=== PATIENT | female | born 1985 | race Caucasian/White ===

== ENCOUNTER 2017-09-04 03:41 | Inpatient (IN) | payer OTHER ==
[2017-09-04] VITALS (20 sets, daily range): BP systolic 84–120; BP diastolic 48–80
[~2017-09-04] VITALS: Ht 160 cm; Wt 96.6 kg
[~2017-09-04 03:41] MED LIST: CLARITIN,ALAVAR10 MG PO; HYDROCODON-ACE1 EAC7 PO; IBUPROFEN800 MG PO; NEXIUM40 MG PO; PHILLIPS' LAXA100 MG PO; PRENATAL VITAM1 EAC1 PO
[2017-09-04] MEDS ORDERED: ASPIR 8181 M1 PO (05:03)
[2017-09-04] MEDS ORDERED: CLARITIN10 M3 PO (05:04)
[2017-09-04] MEDS ORDERED: FIORICET 50-301 EAC1 PO (05:04)
[2017-09-04] MEDS ORDERED: TYLENOL EXTRA500 MG PO (05:05)
[2017-09-04] MEDS ORDERED: FLONASE SENSIM9.9 ML BOTH NARES (05:05)
[2017-09-04] MEDS ORDERED: BENADRYL50 MG PO (05:06)
[2017-09-04 06:22] LABS: BASOPHIL (%) 0.4 % (0-1); BASOPHIL COUNT 0.1 K/uL (0-0.1); EOSINOPHIL (%) 0.6 % (0-5); EOSINOPHIL COUNT 0.1 K/uL (0-0.3); HEMATOCRIT 36.3 % (36.0-46.0); HEMOGLOBIN 11.5 G/DL (11.9-15.5); IMMATURE GRANULOCYTE (%) 0.6 % (0.0-0.7); LYMPHOCYTE (%) 21.4 % (15-42); LYMPHOCYTE COUNT 3.1 K/uL (1.0-2.8); MCH 25.9 PG (29.0-34.0); MCHC 31.7 G/DL (30.0-36.0); MCV 81.8 FL (83-99); MONOCYTE (%) 6.7 % (3-12); NEUTROPHIL (%) 70.3 % (45-76); NEUTROPHIL COUNT 10.2 K/uL (1.8-6.4); PLATELET COUNT 165 K/uL (156-360); RBC DIS.WIDTH-CV 13.8 % (11.8-14.6); RBC DIS.WIDTH-SD 40.4 % (39-53); RED BLOOD COUNT 4.44 M/uL (3.80-5.20); WHITE BLOOD COUNT 14.6 K/uL (4.1-10.2)
[2017-09-04 06:34] LABS: COCAINE NEGATIVE (150 ng/mL); METHAMPHETAMINE NEGATIVE (500 ng/mL); OPIATES (MORPHINE) NEGATIVE (100 ng/mL); PHENCYCLIDINE NEGATIVE (25 ng/mL); THC CANNABINOIDS NEGATIVE (50 ng/mL)
[2017-09-04 06:35] LABS: AMPHETAMINE NEGATIVE (500 ng/mL); BARBITURATES NEGATIVE (200 ng/mL); BENZODIAZEPINES NEGATIVE (150 ng/mL); BUPRENORPHINE NEGATIVE (10 ng/mL); METHADONE NEGATIVE (200 ng/mL); OXYCODONE NEGATIVE (100 ng/mL); PROPOXYPHENE NEGATIVE (300 ng/mL); TRICYCLIC ANTIDEPRESSANTS NEGATIVE (300 ng/mL)
[2017-09-04 06:40] LABS: ALBUMIN 3.5 G/DL (3.2-4.8); ALKALINE PHOSPHATASE 258 IU/L (3-129); ALT (GPT) 4 IU/L (3-49); AST (GOT) 13 IU/L (2-34); CHLORIDE 107 MEQ/L (99-109); CREATININE 0.7 MG/DL (0.6-1.3); GFR ESTIMATE (CALCULATED) > 59 mL/min/; GLUCOSE 82 mg/dL (70-99); POTASSIUM 3.9 MEQ/L (3.7-5.4); SODIUM 137 MEQ/L (136-147); TOTAL BILIRUBIN 0.4 MG/DL (0.0-1.0); TOTAL PROTEIN 6.1 G/DL (6.4-8.3); UREA NITROGEN (BUN) 8 mg/dL (9-23)
[2017-09-04 08:49] LABS: UR CREATININE CONCENTRATION 57.8 MG/DL
[2017-09-04] MEDS ORDERED: MOTRIN800 MG PO (12:28)
[2017-09-04] MEDS ORDERED: DILAUDID2 MG PO (12:28)
[2017-09-05 00:33] VITALS: BP 97/54
[2017-09-05 02:42] VITALS: BP 102/57
[2017-09-05 06:46] LABS: BASOPHIL (%) 0.2 % (0-1); EOSINOPHIL (%) 0.1 % (0-5); HEMATOCRIT 29.3 % (36.0-46.0); IMMATURE GRANULOCYTE (%) 0.9 % (0.0-0.7); LYMPHOCYTE (%) 14.7 % (15-42); MCH 26.3 PG (29.0-34.0); MCHC 32.1 G/DL (30.0-36.0); MCV 81.8 FL (83-99); MONOCYTE (%) 6.9 % (3-12); NEUTROPHIL (%) 77.2 % (45-76); NEUTROPHIL COUNT 10.7 K/uL (1.8-6.4); PLATELET COUNT 137 K/uL (156-360); RBC DIS.WIDTH-CV 13.8 % (11.8-14.6); RBC DIS.WIDTH-SD 40.7 % (39-53); RED BLOOD COUNT 3.58 M/uL (3.80-5.20); WHITE BLOOD COUNT 13.8 K/uL (4.1-10.2)
[2017-09-05 07:06] LABS: HEMOGLOBIN 9.4 G/DL (11.9-15.5)
[2017-09-05 07:29] VITALS: BP 131/75
[2017-09-05 11:22] VITALS: BP 111/69
[2017-09-05 15:52] VITALS: BP 114/66
[2017-09-05 19:00] VITALS: BP 106/75
[2017-09-06 03:00] VITALS: BP 108/63
[2017-09-06 07:12] VITALS: BP 124/74
[2017-09-06 11:01] VITALS: BP 104/67
[2017-09-06] MEDS ORDERED: CYCLOBENZAPRINE5 MG PO (13:28)
[2017-09-06] MEDS ORDERED: HYDROCODON-ACE1 EAC7 PO (13:28)
[2017-09-06 14:10] VITALS: BP 125/68
== END 2017-09-06 15:54 | disposition home or self-care (01) | DRG 765 ==
LOC: LDRP-OP 03:41 → 2WEST 03:42 → LDRP-OP 11-05 10:40
PROVIDERS: Midwife; Obstetrics & Gynecology
DX: O62.0 Primary inadequate contractions (principal); O76 Abnormality in fetal heart rate and rhythm complicating labor and delivery; O34.211 Maternal care for low transverse scar from previous cesarean delivery; O63.0 Prolonged first stage (of labor); O42.90 Premature rupture of membranes, unspecified as to length of time between rupture and onset of labor, unspecified weeks of gestation; O99.02 Anemia complicating childbirth; D62 Acute posthemorrhagic anemia; O99.214 Obesity complicating childbirth; E66.9 Obesity, unspecified; Z79.82 Long term (current) use of aspirin; Z87.891 Personal history of nicotine dependence; Z68.36 Body mass index [BMI] 36.0-36.9, adult; Z3A.39 39 weeks gestation of pregnancy; Z37.0 Single live birth
CPT/HCPCS: 80053; 82570; 84156; 85025; 86850; 86900; 86901; C1755; J0690; J2274; J2405; J3010; J7120